=== PATIENT | female | born 1990 | race Caucasian/White ===

== ENCOUNTER 2016-12-13 13:49 | Emergency (ER) | payer MEDICARE | END 2016-12-13 15:18 | disposition home or self-care (01) | LOC: ER 13:49 | DX: R51 Headache (principal); I10 Essential (primary) hypertension; E28.2 Polycystic ovarian syndrome; K58.9 Irritable bowel syndrome, unspecified; Z79.899 Other long term (current) drug therapy; Z88.6 Allergy status to analgesic agent; W22.8XXA Striking against or struck by other objects, initial encounter; Y92.009 Unspecified place in unspecified non-institutional (private) residence as the place of occurrence of the external cause | CPT/HCPCS: 96372; J2550 ==